=== PATIENT | male | born 2000 | race Two or more races ===

== ENCOUNTER 2020-12-03 14:03 | Emergency (ER) | payer OTHER ==
[~2020-12-03] VITALS: Ht 157.5 cm; Wt 61.4 kg
[2020-12-03 14:11] VITALS: BP 119/71
== END 2020-12-03 15:10 | disposition home or self-care (01) ==
LOC: M ED 14:03
DX: R11.10 Vomiting, unspecified (principal); F17.290 Nicotine dependence, other tobacco product, uncomplicated